=== PATIENT | female | born 1950 | race Caucasian/White ===

== ENCOUNTER 2024-02-18 08:54 | Outpatient (CLI) | payer MEDICARE, OTHER | END 2024-02-18 08:55 | disposition home or self-care (01) | LOC: BICMAMMO 08:54 | PROVIDERS: ATTEND Family Medicine | DX: M85.80 Other specified disorders of bone density and structure, unspecified site (principal); M81.0 Age-related osteoporosis without current pathological fracture | CPT/HCPCS: 77080 ==

== ENCOUNTER 2025-05-28 09:40 | Day surgery (SDC) | payer MEDICARE ==
[2025-05-23 09:53] VITALS: BMI 21.1
[2025-05-28] MEDS ORDERED: Lidocaine 1% PF 5 ML VIAL ONE (12:12)
[2025-05-28] MEDS ORDERED: PROPOFOL 200 MG/20 ML VIAL ONE (12:12)
[2025-05-28] MEDS ORDERED: Ondansetron PF 4 MG/2 ML Vial ONE (12:12)
== END 2025-05-28 14:25 | disposition home or self-care (01) ==
LOC: MRI 09:40
PROVIDERS: ATTEND Physical Medicine & Rehabilitation
DX: M54.50 Low back pain, unspecified (principal); I12.9 Hypertensive chronic kidney disease with stage 1 through stage 4 chronic kidney disease, or unspecified chronic kidney disease; N18.9 Chronic kidney disease, unspecified; Z79.82 Long term (current) use of aspirin; Z79.899 Other long term (current) drug therapy
CPT/HCPCS: 72148